=== PATIENT | female | born 1975 | race Hispanic/Latino ===

== ENCOUNTER 2021-11-25 07:33 | Outpatient (CLI) | payer BC ==
[2021-11-25 08:27] LABS: Hemoglobin 11.1 g/dL (12.0-15.5); Mean Corpuscular HGB CONC 31.8 g/dL (32.0-36.0); Mean Corpuscular Volume 75.4 fl (81.6-98.3); Mean Platelet Volume 9.7 fl (7.4-10.4); Platelet Count 398 10x3/uL (150-450); RBC Distribution Width 15.5 % (11.5-14.5); Red Blood Cell (RBC) Count 4.63 10x6/uL (3.90-5.03); White Blood Cell (WBC) Count 6.4 10x3/uL (3.5-10.5)
[2021-11-25 08:50] LABS: BHCG - Serum Negative (NEGATIVE); Pregs Control Background? CLEAR/WHITE (CLR/WHITE); Pregs Control Bar Appear? YES (CONTROL BAR)
[2021-11-25 19:26] LABS: SARS-CoV-2 PCR by NAA Not Detected (NotDetected)
== END 2021-11-25 07:34 | disposition home or self-care (01) ==
LOC: CSHLAB 07:33
PROVIDERS: ATTEND Student in an Organized Health Care Education/Training Program
DX: Z01.812 Encounter for preprocedural laboratory examination (principal); Z20.822 Contact with and (suspected) exposure to COVID-19; D06.9 Carcinoma in situ of cervix, unspecified
CPT/HCPCS: 84703; 85027; 86850; 86900; 86901; U0003; U0005

== ENCOUNTER 2021-11-30 09:33 | Day surgery (SDC) | payer BC ==
[2021-11-25 08:27] LABS: Hemoglobin 11.1 g/dL (12.0-15.5); Mean Corpuscular HGB CONC 31.8 g/dL (32.0-36.0); Mean Corpuscular Volume 75.4 fl (81.6-98.3); Mean Platelet Volume 9.7 fl (7.4-10.4); Platelet Count 398 10x3/uL (150-450); RBC Distribution Width 15.5 % (11.5-14.5); Red Blood Cell (RBC) Count 4.63 10x6/uL (3.90-5.03); White Blood Cell (WBC) Count 6.4 10x3/uL (3.5-10.5)
[2021-11-25 08:50] LABS: BHCG - Serum Negative (NEGATIVE); Pregs Control Background? CLEAR/WHITE (CLR/WHITE); Pregs Control Bar Appear? YES (CONTROL BAR)
[2021-11-29 10:01] VITALS: BMI 32.2
[2021-11-30] MEDS ORDERED: Lidocaine 1% MPF 2 ML VIAL ONE (10:15)
[2021-11-30] MEDS ORDERED: CeleCOXIB 100 MG CAP ONE (10:15)
[2021-11-30] MEDS ORDERED: Lidocaine 1% w/Epinephrine 1:100K 20 ML VIAL ONE (12:17)
[2021-11-30] MEDS ORDERED: Methylergonovine 0.2 MG/ML VIAL ONE (12:21)
[2021-11-30] MEDS ORDERED: ceFAZolin 2 GM/Dextrose 50 ML IVPB ONE (12:27)
[2021-11-30] MEDS ORDERED: Fentanyl 100 MCG/2 ML VIAL ONE (12:34)
[2021-11-30] MEDS ORDERED: PROPOFOL 20 ML ONE (12:34)
[2021-11-30] MEDS ORDERED: Ketorolac Tromethamine 30 MG/ML VIAL ONE (12:49)
[2021-11-30] MEDS ORDERED: Ondansetron PF 4 MG/2 ML Vial ONE (12:49)
[2021-11-30] MEDS ORDERED: Lidocaine 2% PF 5 ML VIAL ONE (12:49)
[2021-11-30] MEDS ORDERED: Dexamethasone 4 mg/ml Vial ONE (12:49)
[2021-11-30] MEDS ORDERED: Potassium Iodide Solution 14 ML BOT ONE ×2 (13:04→13:30)
[2021-11-30] MEDS ORDERED: Ferric Subsulfate (ASTRINGYN) 8 GM VIAL ONE (13:30)
== END 2021-11-30 15:10 | disposition home or self-care (01) ==
LOC: CSHSDC 09:33
PROVIDERS: ATTEND Student in an Organized Health Care Education/Training Program
PROC: 0UBC7ZZ Excision of Cervix, Via Natural or Artificial Opening (ICD-10-PCS; principal; 2021-11-30)
DX: D06.0 Carcinoma in situ of endocervix (principal)
CPT/HCPCS: 36415; 84703; 85027; 86850; 86900; 86901; 88307; C1713; J0690; J1100; J1885; J2001; J2210; J2405; J2704; J3010; U0003; U0005